=== PATIENT | female | born 1955 | race Caucasian/White ===

== ENCOUNTER 2017-04-29 10:18 | Inpatient (IN) ==
--- NOTE | 2017-04-28 15:43 | Discharge Summary ---
<Ryanne Hull E - Last Filed: 04/28/17 15:41> Date of Encounter: 04/28/17 - Discharge Diagnosis (1) Arthritis of left knee Priority: Primary Status: Acute (2) HTN (hypertension) Priority: Secondary Status: Chronic Qualifiers: Hypertension type: unspecified Qualified Code(s): I10 - Essential (primary ) hypertension (3) OAB (overactive bladder) Priority: Secondary Status: Chronic (4) Hypertrophic cardiomyopathy Priority: Secondary Status: Chronic (5) Obesity Priority: Secondary Status: Chronic Qualifiers: Obesity type: unspecified obesity type Obesity classification: unspecified obesity classification Serious obesity comorbidity presence: unspecified whether serious comorbidity present Qualified Code(s): E66.9 - Obesity, unspecified (6) Status post total left knee replacement Priority: Primary Status: Acute - Hospital Course Hospital course: Ms. Bang is a 61 year old female - Time Spent with Patient Total time spent providing and/or coordinating discharge services: - Discharge Medications Home Medications: Aspirin 81 mg PO DAILY 07/30/16 [History] Ferrous Sulfate [Iron] 325 mg PO DAILY 07/30/16 [History] Meloxicam [Mobic] 15 mg PO DAILY 07/30/16 [History] Metoprolol [Lopressor] 100 mg PO BID 07/30/16 [History] Multivitamin [One Daily Multivitamin] 1 tab PO DAILY 07/30/16 [History] amLODIPine [Norvasc] 5 mg PO DAILY 07/30/16 [History] Aspirin Enteric Coated [Aspirin EC] 325 mg PO BID 10 Days #20 tablet. [Rx] OxyCODONE Immed Rel [Roxicodone 5 MG] 5 mg PO Q6HR PRN 7 Days #28 tablet [Rx] Azithromycin 250 mg PO DAILY 04/29/17 [History] Oxybutynin [Ditropan] 5 mg PO QPM 04/29/17 [History] Oxybutynin [Ditropan] 10 mg PO QAM 04/29/17 [History] Allergies/Adverse Reactions: 3 Allergy/AdvReac Type Severity Reaction Status Date / Time Penicillins Allergy See Verified 04/29/17 11:02 Comments Primary care physician: Kaushal Schultz, - Patient Status Disposition: Transfer Inpatient Rehab Fac Condition: Good - Discharge Instructions Follow Up With: Kaushal Schultz DO [Primary Care Provider] - <AlvarengaTheo - Last Filed: 05/02/17 08:17> Orders not resulted at time of discharge: Pending orders 04/29/17 01:00 XR knee LT limited 1-2V [XR] Routine Hemoglobin and Hematocrit [HEME] Routine Date of Encounter: 05/02/17 Time of Encounter: 08:17 - Discharge Diagnosis (1) Morbid obesity with BMI of 40.0-44.9, adult Priority: Secondary Status: Chronic (2) Arthritis of left knee Priority: Primary Status: Chronic (3) HTN (hypertension) Priority: Secondary Status: Chronic Qualifiers: Hypertension type: unspecified Qualified Code(s): I10 - Essential (primary ) hypertension (4) OAB (overactive bladder) Priority: Secondary Status: Chronic (5) Hypertrophic cardiomyopathy Priority: Secondary Status: Chronic (6) Status post total left knee replacement Priority: Primary Status: Acute (7) Acute blood loss anemia Priority: Primary Status: Acute - Hospital Course Hospital course: Ms. Bang is a 61 year old female Status post left total knee replacement The patient had an uneventful postoperative course. They received antibiotics and physical therapy and were discharged in stable condition. There will follow -up in the office in 2 weeks. - Time Spent with Patient Total time spent providing and/or coordinating discharge services: Primary care physician: Kaushal Schultz, - Patient Status Functional capacity at discharge: uses cane/walker Overall status at discharge: patient is progressing back to baseline
--- NOTE | 2017-04-28 15:44 | Physician Discharge Referral ---
Home Health/Hosp Referral Info Transfer to: Home Health Attending Provider: Dr Alvarenga - Diagnosis (1) Arthritis of left knee Priority: Primary Status: Chronic (2) HTN (hypertension) Priority: Secondary Status: Chronic (3) OAB (overactive bladder) Priority: Secondary Status: Chronic (4) Hypertrophic cardiomyopathy Priority: Secondary Status: Chronic (5) Obesity Priority: Secondary Status: Chronic (6) Status post total left knee replacement Priority: Primary Status: Acute - Respiratory Orders Smoking Cessation: Smoking cessation has been advised. For more information, call the [place] Tobacco Quit Line at 1-281-GTVD-NOW. - Dressing/Wound Care Site: left knee Type of Dressing/Treatments w/Frequency: Opsite placed. Keep dressing intact until first follow up appointment. If > 50% saturated, notify office, remove dressing and place appropriate dressing back in place. Leave Zipline intact. Opsite dressing is water resistant, not water- proof. OK to shower, but do not get dressing wet. - Diet/Nutrition Diet/Nutrition Orders: Regular - Activity Activity Orders: Up ad bina, Ambulate, Chair, Walker Activity: List: Total Knee replacement Precautions x 6 weeks Apply cold therapy wrap 3-6x/day for 20 minutes at a time. Encourage ambulation throughout the day and incentive spirometer 10x/hour. Elevate affected extremity above heart as tolerated. Brace: Wear knee immobilizer at night x 2 weeks. - Services Needed Following services are medically necessary services: Nursing, Home Health Aide, Physical Therapy, Occupational Therapy, Med Social Work - Transfer Medications Prescriptions: OxyCODONE Immed Rel [Roxicodone 5 MG] 5 mg PO Q6HR PRN 7 Days #28 tablet PRN Reason: Severe Pain Aspirin Enteric Coated [Aspirin EC] 325 mg PO BID 10 Days #20 tablet.dr Overton Medications: Aspirin 81 mg PO DAILY 07/30/16 [History] Ferrous Sulfate [Iron] 325 mg PO DAILY 07/30/16 [History] Meloxicam [Mobic] 15 mg PO DAILY 07/30/16 [History] Metoprolol [Lopressor] 100 mg PO DAILY 07/30/16 [History] Multivitamin [One Daily Multivitamin] 1 tab PO DAILY 07/30/16 [History] Tolterodine LA (24 HR) [Detrol LA] 2 mg PO DAILY 07/30/16 [History] amLODIPine [Norvasc] 5 mg PO DAILY 07/30/16 [History] Ibuprofen [Motrin] 600 mg PO Q6HR PRN #40 tab 08/01/16 [Rx] OxyCODONE/APAP 5/325 [Percocet 5/325 MG] 1 each PO Q4HR PRN #40 tablet 08/01/16 [Rx] Aspirin Enteric Coated [Aspirin EC] 325 mg PO BID 10 Days #20 tablet. [Rx] OxyCODONE Immed Rel [Roxicodone 5 MG] 5 mg PO Q6HR PRN 7 Days #28 tablet [Rx] Allergies/Adverse Reactions: 3 Allergy/AdvReac Type Severity Reaction Status Date / Time Penicillins Allergy See Verified 04/12/17 08:17 Comments Certification: Further, I certify that my clinical findings support that this patient is homebound (i.e. absences from home require considerable and taxing effort and are for medical reasons or holiness services or infrequently or short duration when for other reasons) because: Homebound Reason: Post-surgery restriction and or conditions limit ability to leave home Attestation: My signature below is to certify that this patient is under my care and that I, or nurse practitioner, or a physician special education educational assistant working with me, has a face-to- face encounter with this patient.
--- NOTE | 2017-04-29 10:51 | History & Physical Report ---
Date of Encounter: 04/29/17 Time of Encounter: 10:50 24 Hour HP Update - Instructions Instructions: If the History and Physical is less than 30 days old and was completed prior to A.M. admission and or procedure and has NOT been updated on calendar day of procedure please complete this update prior to performing procedure. - Update Patient reports changes in Medical Condition: No Changes in examination, assessment, or condition: No Changes in Medication: No Preop tests/diagnostics Reviewed: Yes Surgery Remains Indicated: Yes Consent for Planned Operative Procedure(s) Verified: Yes - Pre-Operative Checklist Preoperative Checklist Indicated: No Prophylactic Antibiotic Ordered: Yes Is VTE Prophylaxis Indicated?: Yes
[2017-04-29] MEDS ORDERED: Clindamycin 900 MG/50 ML 900 MG/50 ML IV.SOLN IVPB ONE (11:01)
[2017-04-29] MEDS ORDERED: Ringers Solution, Lactated 1,000 ML IVC SCH ×3 (11:15→15:56)
--- NOTE | 2017-04-29 11:15 | Anesthesia Evaluation PreOp ---
Date of Encounter: 04/29/17 Time of Encounter: 11:12 - Past History Planned Operation: Left Total Knee Arthroplasty Cardiac History: HTN Pulmonary History: Denies Any Significant HX, Snore DOGGER History: Denies Any Significant HX Other Medical History: Other (obesity BMI=44.4) Anesthesia History: No Prior Anesthetic Complications, Past Anesthesia Alcohol Use: occasionally Drug use: none Medications and Allergies Aspirin 81 mg PO DAILY 07/30/16 [History] Ferrous Sulfate [Iron] 325 mg PO DAILY 07/30/16 [History] Meloxicam [Mobic] 15 mg PO DAILY 07/30/16 [History] Metoprolol [Lopressor] 100 mg PO BID 07/30/16 [History] Multivitamin [One Daily Multivitamin] 1 tab PO DAILY 07/30/16 [History] amLODIPine [Norvasc] 5 mg PO DAILY 07/30/16 [History] Aspirin Enteric Coated [Aspirin EC] 325 mg PO BID 10 Days #20 tablet. [Rx] OxyCODONE Immed Rel [Roxicodone 5 MG] 5 mg PO Q6HR PRN 7 Days #28 tablet [Rx] Azithromycin [Azithromycin] 250 mg PO DAILY 04/29/17 [History] Oxybutynin [Ditropan] 5 mg PO QPM 04/29/17 [History] Oxybutynin [Ditropan] 10 mg PO QAM 04/29/17 [History] 3 Allergy/AdvReac Type Severity Reaction Status Date / Time Penicillins Allergy See Verified 04/29/17 11:02 Comments - Meds/Allergy Pre-op Review Medications Reviewed: Yes Allergies Reviewed: Yes Beta Blockers on Current Med List: Yes If Beta Blockers taken, Date/Time (Last Dose taken): 04/29/2017 at 0800 Anesthesia Results - Labs Laboratory Tests 04/12/17 04/12/17 04/12/17 09:00 09:00 09:00 WBC 5.0 Hgb 13.8 Hct 43.1 Plt Count 164 PT 13.0 H INR 1.2 APTT 26.7 Sodium 139 Potassium 4.3 BUN 20 Creatinine 0.80 - Imaging EKG: report reviewed (05/11/3016 SINUS RHYTHM WITH FREQUENT SUPRAVENTRICULAR PREMATURE COMPLEXES, LEFT ATRIAL ENLARGEMENT, LVH, POSSIBLE LATERAL MYOCARDIAL INFARCT) Additional studies: 12/10/2014 Echo LVEF 60-65% moderate concentric LVH moderate LV diastolic dysfunction systolic anterior motion of MV leaflets. Turbulence noted but no significant LVOT obstruction by doppler normal RV structure and function no evidence of pulmonary HTN Anesthesia Exam O2 Sat Height 1.55 m Height 1.55 m Weight 106.594 kg Weight 106.594 kg O2 Sat by Pulse Oximetry 99 Vital Signs Temp Pulse Resp BP Pulse Ox 98.1 F 63 18 145/81 99 04/29/17 11:10 04/29/17 11:10 04/29/17 11:10 04/29/17 11:10 04/29/17 11:10 Height: 5'1'' Weight: 235 lbs NPO (# of Hours): 8 Pain Scale: 0 Pain Scale Used: Numeric (1 - 10) - HEENT Pupil (Motor): EOMI Mallampati: II Teeth: Edentulous Oral Opening: Greater than 3 - DOGGER LOC: Oriented DOGGER Motor: Normal RUE, Normal LUE, Normal RLE, Normal LLE, Normal Face DOGGER Sensory: Normal: RUE, LUE, RLE, LLE, Face - Cardiac Rhythm: Regular Murmur: None - Pulmonary Breath Sounds: bilateral Clear Respiratory Effort: Symmetrical Anesthesia Assess/Plan ASA Score: 3 Modified Wilton Scale for Level of Consciousness: Cooperative, oriented, and tranquil Anesthetic Plan: General, Regional Monitoring Plan: Standard Monitors Recovery Plan: PACU
[2017-04-29] MEDS ORDERED: *HR* Propofol 200 MG/20 ML VIAL IVP ONE (11:46)
[2017-04-29] MEDS ORDERED: *HR* Midazolam HCl 2 MG/2 ML VIAL ONE (11:47)
[2017-04-29] MEDS ORDERED: *HR* FentaNYL (PF) 100 MCG/2 ML VIAL ONE ×3 (11:47→13:59)
[2017-04-29] MEDS ORDERED: Ethanol\\Acetic Acid\\Na Ace\\Ben 1,000 ML IRRIG.SOLN IR ONE (12:35)
[2017-04-29] MEDS ORDERED: Bupivacaine/Clonidine Syringe 1 EACH SYRINGE ONE (12:39)
[2017-04-29] MEDS ORDERED: ROPIVACAINE HCL/PF 0.5% 30 ML VIAL ONE ×2 (12:39→12:41)
--- NOTE | 2017-04-29 12:59 | Anesthesia Procedures ---
Date of Encounter: 04/29/17 Time of Encounter: 12:45 Procedures: Anesthesia - Nerve Block Procedure Date: 04/29/17 Time: 12:45 Allergies/Adv Reactions: PCN Pre-op Diagnosis: Left Knee arthritis Surgical Procedure: Left Total knee arthroplasty robot assist Checklist: Correct Patient Identifier, Correct procedure, History checked Correct side: Left Blood Thinner: No Monitor Applied: EKG, BP, Pulse Oximetry Supplemental Oxygen via Nasal Cannula (L/min): 2 Sedation: Versed (mg): 2 Sedation: Fentanyl (mcg): 100 Indication: Post Op Analgesia Pre-op Neuro Deficits: No Block Type: Femoral, Other (Ipack) Catheter placed: No Sterile Technique: Yes Ultrasound used: Yes Anatomy identified: Yes Visual spread of Local: Yes Neuro Stimulation: Yes Nerve Stimulator Range: 0.2 - 0.4 mA Blood on Needle Aspiration: No Smooth Injection of Local: Yes Pain with Injection of Local: No Prep: Chlorhexadine Needle: 22 x 50 mm Stimuplex Local: 0.25% Bupivicaine w/Clonidine 20 mcg/cc (20ml Ipack), Ropivacaine ( Ropivicaine 0.5% 30ml femoral) Volume (cc): 50 Number of Attempts: 1 Complications: None/effective block Vitals: Vital Signs Temperature 98.1 F 04/29/17 11:10 Pulse Rate 63 04/29/17 11:10 Respiratory Rate 18 04/29/17 11:10 Blood Pressure 145/81 04/29/17 11:10 O2 Sat by Pulse Oximetry 99 04/29/17 11:10 Temperature 98.1 F 04/29/17 11:10 Pulse Rate 58 04/29/17 12:53 Respiratory Rate 16 04/29/17 12:53 Blood Pressure 139/87 04/29/17 12:53 O2 Sat by Pulse Oximetry 98 04/29/17 12:53
[2017-04-29] MEDS ORDERED: EPHEDrine 50 MG/ML VIAL ONE (13:25)
[2017-04-29] MEDS ORDERED: Dexamethasone 4 MG/ML VIAL ONE (13:27)
[2017-04-29] MEDS ORDERED: Ondansetron 4 MG/2 ML VIAL ONE (13:27)
[2017-04-29] MEDS ORDERED: Ondansetron 4 MG/2 ML VIAL IVP ONE (13:49)
[2017-04-29] MEDS ORDERED: MORPHINE SUL Oral CONC 10 MG/0.5 ML ORAL.SYG SL PRN (13:49)
[2017-04-29] MEDS ORDERED: *HR* Promethazine 25 MG/ML VIAL IVP PRN (13:49)
[2017-04-29] MEDS ORDERED: Ketorolac 30 MG/ML VIAL ONE (13:59)
--- NOTE | 2017-04-29 14:16 | Orthopedic Operative Note ---
Date of procedure: 04/29/17 Pre-op diagnosis: Left knee arthritis Post-op diagnosis: other (Patient with a thick identified after general anesthesia was administered left upper thigh was removed and sent to the lab. Outside surgical draping area.) Procedure: Procedure: Left robotic-assisted Total knee replacement Estimated blood loss: 400 cc Hardware: Metal and polyethylene replacement. Yulisa Femur: 4 Tibia: 3 TS insert: 13 Patella: 36 Exam Under anesthesia: Flexion contracture 14 degrees valgus as calculated by the robot full flexion and no instability Procedural Notes: Grade 4 arthritic changes all 3 compartments Operative procedure: The patient was brought to the operating room and placed on the operating room table. After general anesthesia was administered the operative knee was examined. Findings were noted in the exam under anesthesia. The operative extremity was prepped and draped in sterile surgical fashion. The patient received IV antibiotics prior to skin incision. A standard midline incision was made centered over the patella. The incision was made through the skin and subcutaneous tissue. A medial parapatellar tendon approach was performed. Care was taken to preserve tissue along the medial aspect of the patella. And to protect the patella tendon. The deep MCL was released off the medial tibia. The infra patella fat pad was excised. The patella was everted and cut was made at the level of the insertion of the quadriceps and patella tendon. The patella was sized to a 36 the guide was seated and the lug holes are drilled. Knee was brought into flexion. Patient noted to have grade 4 arthritic changes all 3 compartments. Steinmann pins were placed in the tibia and the femur for the tibial and femoral arrays respectively. Checkpoints were also placed in the tibia and the femur for calculation purposes. The knee including the femur and the tibial registered. Osteophytes, ACL and PCL were excised at this point. Extension and flexion were assessed with a valgus stress components were adjusted on the computer to balance the knee. Femoral cuts were made first with robotic assistance, these included the anterior cut posterior cuts chamfer cuts. Tibial cut was then performed with robotic assistance as well. Bone fragments were removed, as well as the medial and lateral meniscus. The size 4 femoral guide was seated box cut was made lug holes are drilled. The size 3 tibial tray was seated and prepared with the fin cutter. Trial reduction with the 13 TS Malaika revealed extension of 0 degree and 1 degree varus full flexion. No varus valgus instability. Trial reduction revealed excellent patella tracking. All trial components were removed all bony surfaces were irrigated. The Tibia was seated followed by the femur, The Malaika size13 was seated and secured patella. Patient had similar findings for motion and stability. The knee was closed by the PA. The knee was then irrigated out with 2 L of pulse irrigation. The extensor mechanism was closed with #2 FiberWire suture and #2 PDS suture. The subcutaneous tissue was then irrigated and closed deep with #1 PDS suture superficially with 0 PDS suture and skin was closed with zip tie The patient was then placed in a sterile dressing and a postoperative brace extubated and transferred to recovery room in stable condition. Anesthesia: GETA Surgeon: Theo Alvarenga Was there an financial assistant present: Yes Director Of Quality Control: Ryanne Hull Estimated blood loss (cc): 400 Condition: stable Disposition: PACU
--- NOTE | 2017-04-29 15:19 | Anesthesia Evaluation Post Op ---
Date of Encounter: 04/29/17 Time of Encounter: 15:18 - Vital Signs Vital Signs: Vital Signs/O2 Sat, Most Current Temp Pulse Resp BP Pulse Ox 97.8 F 78 16 141/87 94 04/29/17 14:49 04/29/17 15:09 04/29/17 15:09 04/29/17 14:59 04/29/17 15:09 - Lungs Lungs: Clear Ascult./Percussion - Airway Airway: Non-obstructed - Cardiovascular Regular Rate - Mental Status Mental Status: Alert & Oriented, Answers Appropriately - Pain Pain Scale: 4 Pain Scale used: Numeric (1 - 10) - Nausea Vomiting Nausea Vomiting: Not Present - Hydration Hydration: Ice chips, Has not voided - Discharge PostOp Status: Transfer Patient to floor
[2017-04-29 15:25] LABS: Hematocrit 37.1 % (35.3-44.9)
[2017-04-29] MEDS ORDERED: *HR* OxyCODONE/APAP 5/325 TABLET PO PRN (15:56)
[2017-04-29] MEDS ORDERED: Naloxone 0.4 MG/ML INJ IVP PRN (15:56)
[2017-04-29] MEDS ORDERED: MOM Conc 10 ML UD.LIQ PO PRN (15:56)
[2017-04-29] MEDS ORDERED: Ondansetron 4 MG/2 ML VIAL IVP PRN (15:56)
[2017-04-29] MEDS ORDERED: Sennosides 8.6 MG TABLET PO PRN (15:56)
[2017-04-29] MEDS ORDERED: CeFAZolin Premix DUPLEX 2,000 MG/50 ML BAG IVPB SCH (16:00)
[2017-04-29] MEDS: *HR* OxyCODONE Immed Rel 5 MG TABLET PO PRN (16:31)
[2017-04-29] MEDS: *HR* Enoxaparin 30 MG/0.3 ML SYRINGE SQ SCH (17:34)
[2017-04-29] MEDS ORDERED: *HR* Enoxaparin 30 MG/0.3 ML SYRINGE SQ SCH (18:00)
[2017-04-29] MEDS: Clindamycin 900 MG/50 ML 900 MG/50 ML IV.SOLN IVPB SCH (23:45)
[2017-04-29] MEDS: Metoprolol 100 MG TABLET PO SCH (23:46)
[2017-04-29] MEDS: traMADol 50 MG TABLET PO PRN (23:46)
[2017-04-30] MEDS: Clindamycin 900 MG/50 ML 900 MG/50 ML IV.SOLN IVPB SCH (04:38)
[2017-04-30 06:32] LABS: Hematocrit 31.3 % (35.3-44.9)
[2017-04-30 06:37] LABS: Hemoglobin 10.3 g/dL (11.5-15.4)
[2017-04-30 06:38] LABS: BUN/Creatinine Ratio 23 (6-26); Blood Urea Nitrogen 17 mg/dL (8-23); Calcium 8.5 mg/dL (8.6-10.3); Carbon Dioxide 28 mEq/L (23-29); Chloride 105 mEq/L (98-107); Glucose 131 mg/dL (70-105); Osmolality,Calculated 289 (280-300); Potassium 4.4 mEq/L (3.5-5.1); Sodium 138 mEq/L (136-145); eGFR For African Americans > 60 (> 60); eGFR For Non-African Americans > 60 (> 60)
--- NOTE | 2017-04-30 06:38 | Orthopedics Progress Note ---
Date of Encounter: 04/30/17 Time of Encounter: 06:38 - Assessment and Plan (1) Morbid obesity with BMI of 40.0-44.9, adult Current Visit: Yes Status: Chronic (2) Arthritis of left knee Current Visit: No Status: Chronic (3) HTN (hypertension) Current Visit: No Status: Chronic Qualifiers: Hypertension type: unspecified Qualified Code(s): I10 - Essential (primary ) hypertension (4) OAB (overactive bladder) Current Visit: No Status: Chronic (5) Hypertrophic cardiomyopathy Current Visit: No Status: Chronic (6) Status post total left knee replacement Current Visit: No Status: Acute Subjective Interval history: Patient was seen this morning doing well without complaints. Afebrile vital signs stable. Operative extremity: Neurovascularly intact Dressing clean dry and intact Calves nontender Assessment and plan: Continue with postoperative care Hematocrit 37 Objective Vital signs: Vital Signs Temp Pulse Resp BP Pulse Ox 04/30/17 04:25 98.4 F 76 17 110/72 95 04/30/17 00:40 98.2 F 64 17 86/59 96 04/29/17 19:17 97.5 F L 85 16 107/74 98 04/29/17 18:31 97.4 F L 77 16 105/68 97 04/29/17 17:12 97.9 F 77 16 103/70 95 04/29/17 16:05 97.7 F 70 15 128/88 97 04/29/17 15:29 72 16 138/82 92 04/29/17 15:19 97.2 F L 74 16 137/87 96 04/29/17 15:09 78 16 133/96 94 04/29/17 14:59 82 16 141/87 92 04/29/17 14:49 97.8 F 78 16 141/94 99 04/29/17 12:53 58 16 139/87 98 04/29/17 12:30 58 136/98 100 04/29/17 11:10 98.1 F 63 18 145/81 99 Intake and Output 04/29/17 04/29/17 04/30/17 15:59 23:59 07:59 Intake Total 600 / 600 50 / 50 Output Total 400 / 400 Balance -400 / -400 600 / 600 50 / 50 Intake: IV Fluids 600 / 600 50 / 50 Lactated Ringers 1,000 ML @ 75 600 / 600 mls/hr IVC .[id number] MASSIEL Rx#: [id number] Cleocin Premix 900 MG/50 ML 900 50 / 50 mg In 50 ml @ 50 mls/hr IVPB Q8H MASSIEL Rx#:[id number] Output: Estimated Blood Loss 400 / 400 Other: Meal Dinner Percent of Meal Consumed 70% Weight 106.594 kg - Labs CBC & BMP: 04/29/17 15:02 - VTE Documentation of Mechanical Device: Venous foot pump, device Consult Discharge Plan - Plan Referrals: Kaushal Schultz DO [Primary Care Provider] -
[2017-04-30] MEDS: Aspirin 81 MG TAB.CHEW PO SCH (08:18)
[2017-04-30] MEDS: *HR* OxyCODONE Immed Rel 5 MG TABLET PO PRN ×4 (08:18→22:02)
[2017-04-30] MEDS: Multivit/Ca/Min/Fe/FA 1 TAB TABLET PO SCH (08:18)
[2017-04-30] MEDS: amLODIPine 5 MG TABLET PO SCH (09:00)
[2017-04-30] MEDS: Metoprolol 100 MG TABLET PO SCH ×2 (09:00→19:47)
[2017-04-30] MEDS: *HR* Enoxaparin 30 MG/0.3 ML SYRINGE SQ SCH ×2 (09:00→18:38)
[2017-04-30] MEDS: traMADol 50 MG TABLET PO PRN (15:00)
[2017-04-30] MEDS ORDERED: Trolamine Salicylate/Aloe Vera 35.4 GM TUBE TP PRN (16:20)
--- NOTE | 2017-04-30 16:56 | Event Note ---
Date of Encounter: 04/30/17 Time of Encounter: 12:10 PCR- POD#1 L TKR robotic 04/29/17 Lyle PCR - Patient seen at bedside - patent sitting in chair. Spouse at bedside. Labwork and medications reviewed. Pain control: Adequate - having spasms she states that these are causing her discomfort otherwise pain medication is controlling problem. Participating in PT. All questions and concerns addressed. Educated on use of incentive spirometer, ambulation, and hydration. Patient educated on post-operative restrictions and care. Addressed: Patient determined to be more appropriate for ECF over HH. Patient agreeable. Patient c/o pain to left calf. Tender to palpation. Will order doppler for evaluation. Neurovascualrly intact. D/C plan: ECF
[2017-04-30] MEDS ORDERED: Acetaminophen 325 MG TABLET PO PRN (17:00)
--- NOTE | 2017-04-30 17:02 | Physician Discharge Referral ---
ExtendedCare Referral Info Transfer To: [facility] Provider in Charge: Dr Alvarenga - Diagnosis (1) Arthritis of left knee Priority: Primary Status: Chronic (2) HTN (hypertension) Priority: Secondary Status: Chronic (3) OAB (overactive bladder) Priority: Secondary Status: Chronic (4) Hypertrophic cardiomyopathy Priority: Secondary Status: Chronic (5) Obesity Priority: Secondary Status: Chronic (6) Status post total left knee replacement Priority: Primary Status: Acute Expected Duration of Placement: less than 30 days Prognosis: Good Aware of Diagnosis: Patient Aware of Prognosis: Patient - Transfer Medications Home Medications: Aspirin 81 mg PO DAILY 07/30/16 [History] Ferrous Sulfate [Iron] 325 mg PO DAILY 07/30/16 [History] Meloxicam [Mobic] 15 mg PO DAILY 07/30/16 [History] Metoprolol [Lopressor] 100 mg PO BID 07/30/16 [History] Multivitamin [One Daily Multivitamin] 1 tab PO DAILY 07/30/16 [History] amLODIPine [Norvasc] 5 mg PO DAILY 07/30/16 [History] Aspirin Enteric Coated [Aspirin EC] 325 mg PO BID 10 Days #20 tablet. [Rx] OxyCODONE Immed Rel [Roxicodone 5 MG] 5 mg PO Q6HR PRN 7 Days #28 tablet [Rx] Azithromycin 250 mg PO DAILY 04/29/17 [History] Oxybutynin [Ditropan] 5 mg PO QPM 04/29/17 [History] Oxybutynin [Ditropan] 10 mg PO QAM 04/29/17 [History] Allergies/Adverse Reactions: 3 Allergy/AdvReac Type Severity Reaction Status Date / Time Penicillins Allergy See Verified 04/29/17 11:02 Comments - Respiratory Orders Smoking Cessation: Smoking cessation has been advised. For more information, call the [place] Tobacco Quit Line at 1-297-YDZJ-NOW. - Ancillary Orders May use pressure relief devices daily prn, May go on MICHELL w/family/respon libertarian w /meds at nurse discretion PRN, May consult with Dentist, Attending Ambulatory Care, Residential Concierge PRN - Mobility Orders Chair, Ambulate - Rehabiliation Orders Rehab Potential: Good Rehab Orders: Evaluation for Physical Therapy, Evaluation for Occupational Therapy Other: Total Knee replacement Precautions x 6 weeks Apply cold therapy wrap 3-6x/day for 20 minutes at a time. Encourage ambulation throughout the day and incentive spirometer 10x/hour. Elevate affected extremity above heart as tolerated. Brace: Wear knee immobilizer at night x 2 weeks. - Treatments Skin tear care topically daily PRN per policy List/Other: Opsite placed. Keep dressing intact until first follow up appointment. If > 50% saturated, notify office, remove dressing and place appropriate dressing back in place. Leave Zipline intact. Opsite dressing is water resistant, not water- proof. OK to shower, but do not get dressing wet. - Diet Orders Regular CERTIFICATION: I certify that the transfer of the above named patient to an Extended Care Facility is necessary for the continuing treatment of the diagnosis listed. The above information is true and accurate reflection of patient's current condition. Confidential - Redisclosure prohibited without a patient's written consent.
[2017-05-01] MEDS: Temazepam 15 MG CAPSULE PO PRN ×2 (00:09→21:30)
[2017-05-01] MEDS: *HR* OxyCODONE Immed Rel 5 MG TABLET PO PRN ×3 (02:21→16:33)
[2017-05-01] MEDS: *HR* Enoxaparin 30 MG/0.3 ML SYRINGE SQ SCH ×2 (06:24→17:31)
[2017-05-01 06:28] LABS: Hematocrit 30.7 % (35.3-44.9); Hemoglobin 9.7 g/dL (11.5-15.4)
[2017-05-01 06:47] LABS: BUN/Creatinine Ratio 19 (6-26); Blood Urea Nitrogen 14 mg/dL (8-23); Calcium 8.8 mg/dL (8.6-10.3); Carbon Dioxide 28 mEq/L (23-29); Chloride 104 mEq/L (98-107); Glucose 101 mg/dL (70-105); Osmolality,Calculated 285 (280-300); Potassium 4.1 mEq/L (3.5-5.1); Sodium 137 mEq/L (136-145); eGFR For African Americans > 60 (> 60); eGFR For Non-African Americans > 60 (> 60)
[2017-05-01] MEDS: Multivit/Ca/Min/Fe/FA 1 TAB TABLET PO SCH (08:28)
[2017-05-01] MEDS: Aspirin 81 MG TAB.CHEW PO SCH (08:29)
[2017-05-01] MEDS: Metoprolol 100 MG TABLET PO SCH ×2 (08:29→20:46)
[2017-05-01] MEDS: amLODIPine 5 MG TABLET PO SCH (08:29)
--- NOTE | 2017-05-01 08:33 | Orthopedics Progress Note ---
Date of Encounter: 05/01/17 Time of Encounter: 08:32 - Assessment and Plan (1) Morbid obesity with BMI of 40.0-44.9, adult Current Visit: Yes Status: Chronic (2) Arthritis of left knee Current Visit: No Status: Chronic (3) HTN (hypertension) Current Visit: No Status: Chronic Qualifiers: Hypertension type: unspecified Qualified Code(s): I10 - Essential (primary ) hypertension (4) OAB (overactive bladder) Current Visit: No Status: Chronic (5) Hypertrophic cardiomyopathy Current Visit: No Status: Chronic (6) Status post total left knee replacement Current Visit: No Status: Acute (7) Acute blood loss anemia Current Visit: Yes Status: Acute Subjective Interval history: Patient was seen this morning doing well without complaints. Afebrile vital signs stable. Operative extremity: Neurovascularly intact Dressing clean dry and intact Calves nontender Assessment and plan: Continue with postoperative care Hemoglobin 9.7 Objective Vital signs: Vital Signs Temp Pulse Resp BP Pulse Ox 05/01/17 06:35 99.6 F 82 17 138/75 97 05/01/17 00:20 98.8 F 71 14 140/85 98 04/30/17 19:07 98.7 F 77 16 139/79 100 04/30/17 16:11 98.5 F 75 17 132/77 97 04/30/17 11:20 98.7 F 73 16 107/69 98 - Labs CBC & BMP: 05/01/17 05:36 05/01/17 05:36 Labs: Abnormal lab results Hgb 9.7 g/dL (11.5-15.4) L 05/01/17 05:36 Hct 30.7 % (35.3-44.9) L 05/01/17 05:36 - VTE Documentation of Mechanical Device: Venous foot pump, device Consult Discharge Plan - Plan Referrals: Kaushal Schultz DO [Primary Care Provider] -
--- NOTE | 2017-05-01 17:31 | Event Note ---
Date of Encounter: 05/01/17 Time of Encounter: 12:00 PCR- POD#2 L TKR robotic 04/29/17 Lyle PCR - Patient seen at bedside - patent sitting in chair. Labwork and medications reviewed. Pain control: Adequate - having spasms she states that these are causing her discomfort otherwise pain medication is controlling problem. Participating in PT. All questions and concerns addressed. Educated on use of incentive spirometer, ambulation, and hydration. Patient educated on post-operative restrictions and care. Addressed: Patient continues to c/o pain to left calf - doppler 04/30 NEG. Continue PT and meds. D/C plan: [facility] - awaiting auth
[2017-05-02] MEDS: *HR* Enoxaparin 30 MG/0.3 ML SYRINGE SQ SCH (05:49)
[2017-05-02] MEDS: amLODIPine 5 MG TABLET PO SCH (07:32)
[2017-05-02] MEDS: Multivit/Ca/Min/Fe/FA 1 TAB TABLET PO SCH (07:33)
[2017-05-02] MEDS: Aspirin 81 MG TAB.CHEW PO SCH (07:33)
[2017-05-02 07:34] VITALS: BP 135/84
[2017-05-02] MEDS: Metoprolol 100 MG TABLET PO SCH (07:34)
--- NOTE | 2017-05-02 08:18 | Orthopedics Progress Note ---
Date of Encounter: 05/02/17 Time of Encounter: 08:18 - Assessment and Plan (1) Morbid obesity with BMI of 40.0-44.9, adult Current Visit: Yes Status: Chronic (2) Arthritis of left knee Current Visit: No Status: Chronic (3) HTN (hypertension) Current Visit: No Status: Chronic Qualifiers: Hypertension type: unspecified Qualified Code(s): I10 - Essential (primary ) hypertension (4) OAB (overactive bladder) Current Visit: No Status: Chronic (5) Hypertrophic cardiomyopathy Current Visit: No Status: Chronic (6) Status post total left knee replacement Current Visit: No Status: Acute (7) Acute blood loss anemia Current Visit: Yes Status: Acute Subjective Interval history: Patient was seen this morning doing well without complaints. Afebrile vital signs stable. Operative extremity: Neurovascularly intact Dressing clean dry and intact Calves nontender Assessment and plan: Continue with postoperative care Discharged today Objective Vital signs: Vital Signs Temp Pulse Resp BP Pulse Ox 05/02/17 07:33 98.8 F 108 18 135/84 97 05/02/17 04:14 99.8 F H 118 16 147/82 97 05/01/17 23:51 99.5 F 86 16 97/66 96 05/01/17 19:06 99.6 F 91 15 135/77 100 05/01/17 16:00 99.6 F 77 14 119/78 96 05/01/17 11:46 99.2 F 75 16 143/81 100 Intake and Output 05/01/17 05/02/17 05/02/17 23:59 07:59 15:59 Other: Meal Dinner Percent of Meal Consumed 100% - Labs CBC & BMP: 05/01/17 05:36 05/01/17 05:36 Labs: Abnormal lab results Hgb 9.7 g/dL (11.5-15.4) L 05/01/17 05:36 Hct 30.7 % (35.3-44.9) L 05/01/17 05:36 - VTE Documentation of Mechanical Device: Venous foot pump, device Consult Discharge Plan - Plan Referrals: Kaushal Schultz DO [Primary Care Provider] -
[2017-05-02] MEDS: *HR* OxyCODONE Immed Rel 5 MG TABLET PO PRN (11:26)
== END 2017-05-02 11:28 | DRG 470 ==
LOC: SAMDAY 10:18 → 3NENU 15:34
PROVIDERS: ADMIT Orthopaedic Surgery; ATTEND Orthopaedic Surgery

== ENCOUNTER 2021-06-20 17:51 | Inpatient (IN) ==
[2021-06-20] MEDS ORDERED: Morphine Sulfate 2 MG/ML SYRINGE IVP ONE (20:19)
[2021-06-20 20:40] LABS: Basophils # 0.1 K/mcL (0.0-0.2); Basophils % 0.3 %; Eosinophils # 0.1 K/mcL (0.0-0.6); Eosinophils % 0.7 %; Hematocrit 36.7 % (35.3-44.9); Hemoglobin 12.3 g/dL (11.5-15.4); Immature Granulocytes % 0.4 % (0-4); Lymphocytes # 1.7 K/mcL (0.6-4.6); Lymphocytes % 11.5 %; Mean Corpuscular HGB Conc 33.5 g/dL (31.6-35.5); Mean Corpuscular Hemoglobin 30.9 pg (28.0-33.3); Mean Corpuscular Volume 92.2 fL (83.0-100.0); Mean Platelet Volume 10.9 fL (9.4-12.4); Monocytes % 6.6 %; Neutrophils # 12.2 K/mcL (1.6-8.9); Platelet Count 261 K/mcL (140-400); Red Blood Count 3.98 M/mcL (3.82-4.97); Red Cell Distribution Width 13.4 % (11.5-14.5); Segmented Neutrophils % 80.5 %; White Blood Count 15.1 K/mcL (4.3-11.1)
[2021-06-20] MEDS ORDERED: Piperacillin/Tazobactam 3.375 GM in 0.9 % Sodium Chloride Mini Bag 100 ML IVPB ONE (20:41)
[2021-06-20 20:47] LABS: INR 1.7; Prothrombin Time 18.8 Seconds (9.4-12.1)
[2021-06-20 20:49] LABS: Activated Partial Thrombo Time 31.8 Seconds (26.0-36.0)
[2021-06-20 21:01] LABS: Alanine Aminotransferase 7 Units/L (7-52); Albumin 3.6 g/dL (3.5-5.7); Albumin/Globulin Ratio 1.1 (1.1-2.2); Alkaline Phosphatase 50 Units/L (34-104); Aspartate Amino Transferase 11 Units/L (13-39); BUN/Creatinine Ratio 13 (6-26); Bilirubin,Total 0.6 mg/dL (0.3-1.0); Blood Urea Nitrogen 13 mg/dL (8-23); Calcium 9.1 mg/dL (8.6-10.3); Carbon Dioxide 22 mEq/L (23-29); Chloride 99 mEq/L (98-107); Globulin 3.4 g/dL (2.4-3.5); Glucose 85 mg/dL (70-105); Osmolality,Calculated 275 (280-300); Potassium 3.9 mEq/L (3.5-5.1); Sodium 133 mEq/L (136-145); eGFR For African Americans > 60 (> 60); eGFR For Non-African Americans 58 (> 60)
[2021-06-20] MEDS ORDERED: Ringers Solution, Lactated 1,000 ML IVC ONE ×2 (21:41→23:37)
[2021-06-20] MEDS ORDERED: Ondansetron 4 MG/2 ML VIAL IVP PRN (23:35)
[2021-06-20] MEDS ORDERED: Melatonin 3 MG TABLET PO PRN (23:35)
[2021-06-20] MEDS ORDERED: Naloxone 0.4 MG/ML INJ IVP PRN (23:35)
[2021-06-21] MEDS ORDERED: Ringers Solution, Lactated 1,000 ML IVC ONE
[2021-06-21] MEDS ORDERED: D5% in Water 1,000 ML IVC PRN (05:07)
[2021-06-21] MEDS ORDERED: *HR* Dextrose 50 % in Water (Syg) 50 ML SYRINGE IVP PRN (05:07)
[2021-06-21] MEDS ORDERED: Dextrose 4 GM Chewable Tablets PO PRN ×2 (05:07)
[2021-06-21] MEDS ORDERED: Acetaminophen IV 500 MG/50 ML BAG IVPB ONE (05:08)
[2021-06-21 05:30] LABS: Basophils % 0.2 %; Eosinophils # 0.3 K/mcL (0.0-0.6); Eosinophils % 2.2 %; Hematocrit 34.1 % (35.3-44.9); Hemoglobin 11.3 g/dL (11.5-15.4); Immature Granulocytes % 0.8 % (0-4); Lymphocytes % 15.8 %; Mean Corpuscular HGB Conc 33.1 g/dL (31.6-35.5); Mean Corpuscular Volume 93.7 fL (83.0-100.0); Mean Platelet Volume 11.5 fL (9.4-12.4); Monocytes # 0.9 K/mcL (0.0-1.3); Neutrophils # 9.6 K/mcL (1.6-8.9); Platelet Count 189 K/mcL (140-400); Red Blood Count 3.64 M/mcL (3.82-4.97); Red Cell Distribution Width 13.5 % (11.5-14.5); White Blood Count 12.9 K/mcL (4.3-11.1)
[2021-06-21 05:42] LABS: Alanine Aminotransferase 3 Units/L (7-52); Albumin 3.3 g/dL (3.5-5.7); Albumin/Globulin Ratio 1.3 (1.1-2.2); Alkaline Phosphatase 45 Units/L (34-104); Aspartate Amino Transferase 12 Units/L (13-39); BUN/Creatinine Ratio 13 (6-26); Bilirubin,Total 0.4 mg/dL (0.3-1.0); Blood Urea Nitrogen 11 mg/dL (8-23); Calcium 8.5 mg/dL (8.6-10.3); Carbon Dioxide 22 mEq/L (23-29); Chloride 104 mEq/L (98-107); Globulin 2.5 g/dL (2.4-3.5); Glucose 73 mg/dL (70-105); Magnesium 1.7 mg/dL (1.6-2.6); Osmolality,Calculated 280 (280-300); Phosphorous 3.7 mg/dL (2.7-4.5); Potassium 3.9 mEq/L (3.5-5.1); Sodium 136 mEq/L (136-145); Total Protein 5.8 g/dL (6.4-8.9); eGFR For African Americans > 60 (> 60); eGFR For Non-African Americans > 60 (> 60)
[2021-06-21] MEDS: Piperacillin/Tazobactam 3.375 GM in 0.9 % Sodium Chloride Mini Bag 100 ML IVPB SCH ×2 (07:54→15:25)
[2021-06-21] MEDS ORDERED: *HR* OxyCODONE Immed Rel 5 MG TABLET PO PRN (12:30)
[2021-06-21] MEDS: *HR* OxyCODONE Immed Rel 5 MG TABLET PO PRN ×2 (12:49→18:53)
[2021-06-21] MEDS: Acetaminophen IV 1,000 MG/100 ML BAG IVPB SCH ×2 (12:50→20:37)
[2021-06-21] MEDS: 0.9 % Sodium Chloride 1,000 ML IVC SCH (12:50)
[2021-06-21] MEDS: lisinopriL 20 MG TABLET PO SCH (15:25)
[2021-06-21] MEDS: Metoprolol 100 MG TABLET PO SCH (20:38)
[2021-06-22] MEDS: Piperacillin/Tazobactam 3.375 GM in 0.9 % Sodium Chloride Mini Bag 100 ML IVPB SCH ×3 (00:56→17:09)
[2021-06-22] MEDS: 0.9 % Sodium Chloride 1,000 ML IVC SCH (03:00)
[2021-06-22] MEDS: Acetaminophen IV 1,000 MG/100 ML BAG IVPB SCH ×2 (04:54→08:23)
[2021-06-22 05:20] LABS: Basophils % 0.3 %; Eosinophils # 0.3 K/mcL (0.0-0.6); Eosinophils % 2.4 %; Hematocrit 33.5 % (35.3-44.9); Hemoglobin 10.9 g/dL (11.5-15.4); Immature Granulocytes % 0.4 % (0-4); Lymphocytes # 1.1 K/mcL (0.6-4.6); Lymphocytes % 9.8 %; Mean Corpuscular HGB Conc 32.5 g/dL (31.6-35.5); Mean Corpuscular Hemoglobin 30.8 pg (28.0-33.3); Mean Corpuscular Volume 94.6 fL (83.0-100.0); Mean Platelet Volume 10.7 fL (9.4-12.4); Monocytes # 0.8 K/mcL (0.0-1.3); Monocytes % 7.1 %; Neutrophils # 8.8 K/mcL (1.6-8.9); Platelet Count 217 K/mcL (140-400); Red Blood Count 3.54 M/mcL (3.82-4.97); Red Cell Distribution Width 13.5 % (11.5-14.5)
[2021-06-22] MEDS: *HR* OxyCODONE Immed Rel 5 MG TABLET PO PRN ×2 (05:31→12:38)
[2021-06-22 05:38] LABS: BUN/Creatinine Ratio 10 (6-26); Blood Urea Nitrogen 9 mg/dL (8-23); Calcium 8.4 mg/dL (8.6-10.3); Carbon Dioxide 22 mEq/L (23-29); Chloride 106 mEq/L (98-107); Glucose 77 mg/dL (70-105); Magnesium 1.6 mg/dL (1.6-2.6); Osmolality,Calculated 287 (280-300); Potassium 3.8 mEq/L (3.5-5.1); Sodium 140 mEq/L (136-145); eGFR For African Americans > 60 (> 60); eGFR For Non-African Americans > 60 (> 60)
[2021-06-22] MEDS ORDERED: Isovue-370 500 ML BOTTLE IVP ONE (07:31)
[2021-06-22] MEDS: Metoprolol 100 MG TABLET PO SCH ×2 (08:24→22:28)
[2021-06-22] MEDS: Magnesium Oxide 400 MG TABLET PO SCH (08:24)
[2021-06-22] MEDS: lisinopriL 20 MG TABLET PO SCH (08:24)
[2021-06-23] MEDS: Piperacillin/Tazobactam 3.375 GM in 0.9 % Sodium Chloride Mini Bag 100 ML IVPB SCH ×3 (00:04→17:34)
[2021-06-23] MEDS ORDERED: Isovue-370 500 ML BOTTLE PO ONE (06:24)
[2021-06-23 06:53] LABS: Basophils % 0.3 %; Eosinophils # 0.4 K/mcL (0.0-0.6); Eosinophils % 3.3 %; Hematocrit 35.6 % (35.3-44.9); Hemoglobin 11.5 g/dL (11.5-15.4); Immature Granulocytes % 0.3 % (0-4); Lymphocytes # 1.2 K/mcL (0.6-4.6); Lymphocytes % 10.8 %; Mean Corpuscular HGB Conc 32.3 g/dL (31.6-35.5); Mean Platelet Volume 10.8 fL (9.4-12.4); Monocytes # 0.7 K/mcL (0.0-1.3); Monocytes % 6.1 %; Neutrophils # 9.1 K/mcL (1.6-8.9); Platelet Count 253 K/mcL (140-400); Red Blood Count 3.71 M/mcL (3.82-4.97); Red Cell Distribution Width 13.6 % (11.5-14.5); Segmented Neutrophils % 79.2 %; White Blood Count 11.4 K/mcL (4.3-11.1)
[2021-06-23 07:08] LABS: BUN/Creatinine Ratio 12 (6-26); Blood Urea Nitrogen 9 mg/dL (8-23); Calcium 8.6 mg/dL (8.6-10.3); Carbon Dioxide 24 mEq/L (23-29); Chloride 104 mEq/L (98-107); Glucose 80 mg/dL (70-105); Magnesium 1.7 mg/dL (1.6-2.6); Osmolality,Calculated 282 (280-300); Potassium 3.8 mEq/L (3.5-5.1); Sodium 137 mEq/L (136-145); eGFR For African Americans > 60 (> 60); eGFR For Non-African Americans > 60 (> 60)
[2021-06-23] MEDS: Metoprolol 100 MG TABLET PO SCH ×2 (08:22→21:54)
[2021-06-23] MEDS: Magnesium Oxide 400 MG TABLET PO SCH (08:22)
[2021-06-23] MEDS: lisinopriL 20 MG TABLET PO SCH (08:22)
[2021-06-23] MEDS ORDERED: Isovue-370 500 ML BOTTLE IVP ONE (10:03)
[2021-06-23 18:58] LABS: Adenovirus F 40/41 PCR Not detected (Not detect); Astrovirus PCR Not detected (Not detect); C.difficile Toxin A/B Gene PCR Not detected (Not detect); Campylobacter by PCR DETECTED (Not detect); Cryptosporidium by PCR Not detected (Not detect); Cyclospora cayetanensis PCR Not detected (Not detect); Entamoeba histolytica PCR Not detected (Not detect); Enteroaggregative E.coli(EAEC) Not detected (Not detect); Enteropathogenic E.coli(EPEC) Not detected (Not detect); Enterotoxigenic E.coli (ETEC) Not detected (Not detect); Giardia lamblia PCR Not detected (Not detect); Norovirus GI/GII PCR Not detected (Not detect); Plesiomonas shigelloides PCR Not detected (Not detect); Rotavirus A PCR Not detected (Not detect); Salmonella PCR Not detected (Not detect); Sapovirus PCR Not detected (Not detect); Shig/EnteroinvasiveE coli EIEC Not detected (Not detect); Shigalike tox-prod E coli STEC Not detected (Not detect); Vibrio PCR Not detected (Not detect); Vibrio cholerae PCR Not detected (Not detect); Yersinia enterocolitica PCR Not detected (Not detect)
[2021-06-24] MEDS: Piperacillin/Tazobactam 3.375 GM in 0.9 % Sodium Chloride Mini Bag 100 ML IVPB SCH ×4 (01:07→23:48)
[2021-06-24 06:46] LABS: Basophils % 0.4 %; Eosinophils # 0.3 K/mcL (0.0-0.6); Eosinophils % 5.1 %; Hematocrit 37.4 % (35.3-44.9); Hemoglobin 11.9 g/dL (11.5-15.4); Immature Granulocytes % 0.4 % (0-4); Lymphocytes # 0.9 K/mcL (0.6-4.6); Lymphocytes % 16.9 %; Mean Corpuscular HGB Conc 31.8 g/dL (31.6-35.5); Mean Corpuscular Hemoglobin 30.2 pg (28.0-33.3); Mean Corpuscular Volume 94.9 fL (83.0-100.0); Mean Platelet Volume 10.9 fL (9.4-12.4); Monocytes # 0.3 K/mcL (0.0-1.3); Monocytes % 6.4 %; Neutrophils # 3.8 K/mcL (1.6-8.9); Platelet Count 275 K/mcL (140-400); Red Blood Count 3.94 M/mcL (3.82-4.97); Red Cell Distribution Width 13.6 % (11.5-14.5); Segmented Neutrophils % 70.8 %; White Blood Count 5.3 K/mcL (4.3-11.1)
[2021-06-24 07:05] LABS: BUN/Creatinine Ratio 15 (6-26); Blood Urea Nitrogen 13 mg/dL (8-23); Calcium 8.6 mg/dL (8.6-10.3); Carbon Dioxide 24 mEq/L (23-29); Chloride 108 mEq/L (98-107); Glucose 105 mg/dL (70-105); Magnesium 1.8 mg/dL (1.6-2.6); Osmolality,Calculated 288 (280-300); Potassium 3.4 mEq/L (3.5-5.1); Sodium 139 mEq/L (136-145); eGFR For African Americans > 60 (> 60); eGFR For Non-African Americans > 60 (> 60)
[2021-06-24] MEDS: Magnesium Oxide 400 MG TABLET PO SCH (07:52)
[2021-06-24] MEDS: Metoprolol 100 MG TABLET PO SCH ×2 (07:52→20:38)
[2021-06-24] MEDS: lisinopriL 20 MG TABLET PO SCH (07:53)
[2021-06-24] MEDS: Lactobacillus 1 EACH CAP.SPRINK PO SCH ×2 (10:43→20:38)
[2021-06-24] MEDS: Azithromycin 250 MG TABLET PO SCH (12:12)
[2021-06-25 06:01] LABS: BUN/Creatinine Ratio 18 (6-26); Blood Urea Nitrogen 14 mg/dL (8-23); Calcium 8.2 mg/dL (8.6-10.3); Carbon Dioxide 24 mEq/L (23-29); Chloride 112 mEq/L (98-107); Glucose 91 mg/dL (70-105); Osmolality,Calculated 290 (280-300); Potassium 3.6 mEq/L (3.5-5.1); Sodium 140 mEq/L (136-145); eGFR For African Americans > 60 (> 60); eGFR For Non-African Americans > 60 (> 60)
[2021-06-25 08:10] VITALS: BP 157/81; PULSE 57; TEMP 98.1; O2SAT 97
[2021-06-25] MEDS: Magnesium Oxide 400 MG TABLET PO SCH (09:03)
[2021-06-25] MEDS: Metoprolol 100 MG TABLET PO SCH (09:03)
[2021-06-25] MEDS: lisinopriL 20 MG TABLET PO SCH (09:03)
[2021-06-25] MEDS: Piperacillin/Tazobactam 3.375 GM in 0.9 % Sodium Chloride Mini Bag 100 ML IVPB SCH (09:04)
[2021-06-25] MEDS: Lactobacillus 1 EACH CAP.SPRINK PO SCH (09:04)
[2021-06-25] MEDS: Azithromycin 250 MG TABLET PO SCH (09:42)
== END 2021-06-25 13:23 | disposition home or self-care (01) | DRG 871 ==
LOC: EMEROOARM 17:51 → 3ANU 17:51 → SUATTDRO 22:53 → 3ANU 23:30
PROVIDERS: ADMIT Internal Medicine; ATTEND Internal Medicine